=== PATIENT | female | born 1940 | race Caucasian/White ===

== ENCOUNTER → 2020-10-29 17:55 | Outpatient (CLI) | payer MEDICARE, SELFPAY ==
--- NOTE | 2020-10-29 18:00 | DI.RAD.S_ITS ---
PROCEDURE: XR FOOT LT MIN 3V INDICATIONS: L foot pain, stubbed toes TECHNIQUE: 3 views of the foot were acquired. COMPARISON: None. FINDINGS: Bones: There is generalized osteopenia. No acute fracture or dislocation. No suspicious osseous lesion. Scattered degenerative changes are seen in the toes. Soft tissues: No suspicious soft tissue calcification. IMPRESSION: No acute osseous abnormality. If clinical suspicion and/or symptoms persist, additional imaging with repeat plain films, or advanced imaging (e.g. CT, MRI) may be helpful for further assessment. Dictated by: Otilio Beltre M.D. on 10/29/2020 at 17:18 Approved by: Otilio Beltre M.D. on 10/29/2020 at 17:21
== END ==
PROVIDERS: Family Provider Internal Medicine; PCP Internal Medicine; Referring Provider Physician Assistant; Visit Provider Physician Assistant
DX: M79.672 Pain in left foot (principal)
CPT/HCPCS: 73630